=== PATIENT | female | born 1960 | race Caucasian/White ===

== ENCOUNTER 2016-06-10 19:21 | Emergency (ER) | payer OTHER ==
[~2016-06-10] VITALS: Ht 157.5 cm; Wt 120.2 kg
--- NOTE | ~2016-06-10 | EKG ---
[place] [address] [facility] [place] [address] ELECTROCARDIOGRAM REPORT Name: ROC ROMAN Room #: [facility]#: [id number] Admission: 06/10/16 Attend Phys: Discharge: 06/10/16 Date of : 58 Report #: [id number] THIS REPORT FOR: //name// [facility] ED Test Date: 2016-06-10 Test Time: 19:24:10 Pat Name: ROC ROMAN Department: Room: Gender: F Turbo Electric Operator: Mayur SIM RN : 1960 Requested By: Fannie Griffin Order Number: [id number] MD: Jeffery Auguste Measurements Intervals [place] Rate: 86 P: 50 VT: 144 QRS: 6 QRSD: 98 T: 170 QT: 364 QTc: 436 Interpretive Statements Sinus rhythm Ventricular premature complex LVH with secondary repolarization abnormality Anterior ST elevation, probably due to LVH Baseline wander in lead(s) V6 No previous ECG available for comparison Electronically Signed On 06-11-2016 8:21:17 STEAM FITTER by Jeffery Auguste [email or web address] <ELECTRONICALLY SIGNED> By: Jeffery Auguste MD 06/11/16820 23 23 Jeffery Auguste MD /EPI
[~2016-06-10 19:21] MED LIST: ACYCLOVIR 800800 MG PO; IBUPROFEN 600600 M1 PO; PREDNISONE50 MG PO; TRAMADOL 50 MG50 MG PO
[2016-06-10] MEDS ORDERED: AMLODIPINE BESY10 MG PO (21:16)
[2016-06-10 21:55] LABS: ABSOLUTE NEUTROPHILS 8.7 thou/uL (1.4-8.2); BASOPHILS 0.9 % (0.0-2.0); EOSINOPHILS 0.4 % (0.0-3.0); HEMATOCRIT 43.5 % (37.0-47.0); LYMPHOCYTES 16.6 % (24.0-44.0); MCH 31.4 pg (26.0-34.0); MCHC 34.6 % (28.0-37.0); MONOCYTES 6.2 % (1.0-8.0); PLATELET COUNT 308 thou/uL (150-400); POLYS 75.9 % (36.0-66.0); RBC 4.78 mil/uL (4.20-5.00); WBC 11.4 thou/uL (4.0-11.0)
[2016-06-10 21:56] LABS: MANUAL DIFF NO
[2016-06-10 22:00] VITALS: BP 185/76
[2016-06-10 22:08] LABS: ANION GAP 10 mmol/L (7-16); BUN 16 mg/dL (7-18); CALCIUM 9.4 mg/dL (8.5-10.1); CHLORIDE 102 mmol/L (98-107); CO2 29 mmol/L (21-32); CREATININE 0.9 mg/dL (0.6-1.3); GLUCOSE 129 mg/dL (70-99); POTASSIUM 3.1 mmol/L (3.5-5.1); SODIUM 141 mmol/L (136-145)
[2016-06-10 22:22] LABS: ALBUMIN 3.6 g/dL (3.4-5.0); ALKALINE PHOSPHATASE 67 U/L (46-116); NT-PRO BRAIN NAT PEPTIDE 81 pg/mL (<300); SGOT 36 U/L (15-37); SGPT 54 U/L (30-65); TOTAL BILIRUBIN 0.4 mg/dL (<0.1-1.0); TOTAL PROTEIN 7.4 g/dL (6.4-8.2); TROPONIN-I < 0.04 ng/mL (<0.04-0.07)
[2016-06-10] MEDS ORDERED: TESSALON PERLE100 MG PO (23:06)
== END 2016-06-10 22:00 | disposition home or self-care (01) ==
LOC: ER 19:21
PROVIDERS: Emergency Medicine
DX: J06.9 Acute upper respiratory infection, unspecified (principal); I10 Essential (primary) hypertension; E66.9 Obesity, unspecified; Z90.710 Acquired absence of both cervix and uterus; F17.210 Nicotine dependence, cigarettes, uncomplicated

== ENCOUNTER 2017-05-13 17:36 | Inpatient (IN) | payer OTHER ==
[~2017-05-13] VITALS: Ht 157.5 cm; Wt 128.4 kg
--- NOTE | ~2017-05-13 | EEG ---
[facility] [place] [address] ELECTROENCEPHALOGRAM Name: ROC ROMAN Room #: 357-P [facility] IN M.R.#: [id number] Admission: 05/13/17 Attend Phys: Tono Thompson MD Discharge: Date of : 58 Report #: [id number] THIS REPORT FOR: //name// CC: [facility]ono [facility] DATE OF SERVICE: 05/14/2017 This patient is being evaluated for an episode she had with some twitching was noticed. EEG was done by placing the electrodes by standard 10/20 system of electrode placement. Both referential and sequential montages were used for recording. Background activity in this patient's EEG is about 11 Hz and 40 microvolt. It is a symmetrical activity. The patient went to sleep that is associated with bilaterally symmetrical sleep spindle and vertex sharp waves. Photic stimulation is unremarkable. Throughout the record, no active epileptiform activity was noticed. IMPRESSION: This patient's EEG is within normal limit. Thank you very much for this referral. By: 1725 1759 Neal Villalobos MD /nt
--- NOTE | ~2017-05-13 | 2DMMODE ---
[facility] [address] [email or web address] [address] 2 D/M-MODE ECHOCARDIOGRAM Name: ROC ROMAN Room #: 357-P [facility] IN [facility]#: [id number] Admission: 05/13/17 Attend Phys: Tono Thompson MD Discharge: Date of : 58 Date of Service: 05/14/17 1103 Report #: [id number] THIS REPORT FOR: //name// APPROVED REPORT Study performed: 05/14/2017 09:03:10 EXAM: Comprehensive 2D, Doppler, and color-flow Echocardiogram Patient Location: Bedside Room #: 357 Status: routine BSA: 2.22 HR: 79 bpm BP: 158/69 mmHg Other Information Study Quality: Adequate Indications CVA/TIA Hypertension/HDD Echo Enhancing Agent Indication: Rule out Shunt Agent(s) / Amount(s) Used: Agitated Saline 7 cc 2D Dimensions RVDd: 38.76 mm LVEF(%): 64.90 (>50%) IVSd: 15.15 (7-11mm) LVOT Diam: 16.82 (18-24mm) LVDd: 48.03 mm PWd: 14.94 (7-11mm) Ascending Ao: 29.40 (22-36mm) LVDs: 30.96 (25-40mm) Aortic Root: 27.81 mm IVC: 21.00 mm Betts's LVEF: 64.90 % Volumes Left Atrial Volume (Systole) Single Plane 4CH: 72.41 mL Single Plane 2CH: 79.60 mL LA ESV Index: 37.00 mL/m2 Aortic Valve AoV Peak David.: 2.27 m/s AO Peak Gr.: 0.69 mmHg LVOT Max P.41 mmHg AO Mean Gr.: 12.94 mmHg LVOT Mean P.39 mmHg AO V2 Mean: 1.69 m/s LVOT Max V: 1.78 m/s [facility] [place] [address] 2 D/M-MODE ECHOCARDIOGRAM Name: ROC ROMAN Room #: 357-P [facility] IN .R.#: [id number] Admission: 05/13/17 Attend Phys: Tono Thompson MD Discharge: Date of : 58 Date of Service: 05/14/17 1103 Report #: [id number] AO V2 VTI: 48.46 cm LVOT Mean V: 1.24 m/s MELINA (VTI): 1.55 cm2 LVOT V1 VTI: 33.76 cm MELINA Vmax: 1.74 cm2 SV (LVOT): 74.93 mL Mitral Valve E/A Ratio: 0.8 MV Decel. Time: 383.87 ms MV E Max David.: 1.32 m/s MV A David.: 1.58 m/s MV PHT: 111.32 ms IVRT: 129.18 ms Pulmonary Valve PV Peak David.: 1.38 m/s PV Peak Gr.: 7.57 mmHg Pulmonary Vein P Vein S: 0.53 m/s P Vein A: 0.28 m/s P Vein D: 0.36 m/s P Vein A Dur.: 120.0 msec P Vein S/D Ratio: 1.47 Tricuspid Valve TR Peak David.: 2.86 m/s TR Peak Gr.: 32.68 mmHg PA Pressure: 43.00 mmHg Left Ventricle The left ventricle is normal size. There is normal LV segmental wall motion. Mild to moderate concentric left ventricular hypertrophy. Left ventricular systolic function is hyperdynamic. LVEF is 65-70%. Grade I - abnormal relaxation pattern. Right Ventricle The right ventricle is normal size. The right ventricular systolic function is normal. Atria Left atrium is dilated. Interatrial septum is intact without evidence of ASD or PFO. The right atrium size is normal. Aortic Valve The aortic valve is normal in structure. No aortic regurgitation is present. There is no aortic valvular stenosis. Mitral Valve The mitral valve is normal in structure. Trace mitral regurgitation. [facility] [address] [place] [address] 2 D/M-MODE ECHOCARDIOGRAM Name: ROC ROMAN Room #: 357-P [facility] IN M.R.#: [id number] Admission: 05/13/17 Attend Phys: Tono Thompson MD Discharge: Date of : 58 Date of Service: 05/14/17 1103 Report #: [id number] No evidence of mitral valve stenosis. Tricuspid Valve The tricuspid valve is normal in structure. There is no tricuspid valve stenosis. There is trace tricuspid regurgitation. The right atrial pressure is estimated at mmHg. There is moderate pulmonary hypertension. Pulmonic Valve The pulmonary valve is normal in structure. There is no pulmonic valvular regurgitation. Great Vessels The aortic root is normal in size. IVC is dilated and collapses >50% with inspiration. Pericardium There is no pericardial effusion. <Conclusion> The left ventricle is normal size. LVEF is 65-70%. Left atrium is dilated. The right atrium size is normal. The aortic valve is normal in structure. The mitral valve is normal in structure. Trace mitral regurgitation. The tricuspid valve is normal in structure. There is trace tricuspid regurgitation. The right atrial pressure is estimated at mmHg. There is moderate pulmonary hypertension. The pulmonary valve is normal in structure. There is no pericardial effusion. Interatrial septum is intact without evidence of ASD or PFO. <ELECTRONICALLY SIGNED> By: Marcio Jimenez MD 05/14/17 1103 110 02 Marcio Jimenez MD /INF
--- NOTE | ~2017-05-13 | EKG ---
[address] [address] ELECTROCARDIOGRAM REPORT Name: ROC ROMAN Room #: 170-6 ADM IN M.R.#: [id number] Admission: 05/13/17 Attend Phys: Rodrick Da Silva Discharge: Date of : 58 Report #: [id number] THIS REPORT FOR: //name// [facility] ED Test Date: 2017-05-13 Test Time: 17:54:11 Pat Name: ROC ROMAN Department: Room: 170 Gender: F Interactive Multimedia Designer: KKKRISTINA : 1960 Requested By: Dylan Watson Order Number: [id number] MD: Jeffery Auguste Measurements Intervals [place] Rate: 85 P: 48 AL: 140 QRS: 14 QRSD: 98 T: 148 QT: 393 QTc: 468 Interpretive Statements Sinus rhythm LVH with secondary repolarization abnormality Anterior ST elevation, probably due to LVH Compared to ECG 06/10/2016 19:24:10 Ventricular premature complex(es) no longer present ST (T wave) deviation still present Electronically Signed On 05-13-2017 21:13:04 VP & GENERAL COUNSEL by Jeffery Auguste [email or web address] <ELECTRONICALLY SIGNED> By: Jeffery Auguste MD 05/13/17 2113 53 175 Jeffery Auguste MD /EPI
--- NOTE | ~2017-05-13 | HC ---
[facility] [place] [address] CONSULTATION Name: ROC ROMAN Room #: 357-P [facility].#: [id number] Admission: 05/13/17 Attend Phys: Tono Thompson MD Discharge: 05/16/17 Date of : 58 Report #: [id number] THIS REPORT FOR: //name// CC: Tono Silva DATE OF SERVICE: 05/14/2017 HISTORY OF PRESENT ILLNESS: The patient is a 56-year-old white female, right-handed, admitted with right upper extremity ataxia and weakness. She also noted that she was jerking to the right while she was up walking. CT of the head showed a small 8-10 mm left thalamic infarct, unclear age. CTA was negative. MRI of the brain is currently pending. Neurology is involved. We are seeing her in rehabilitation medicine consultation. Of note is the fact that she had markedly elevated blood pressure 223/131 in the Emergency Department and apparently had stopped taking her medications a couple of months ago secondary to finances. She does have morbid obesity and Neurology is recommending lifestyle changes, etc. PAST MEDICAL HISTORY: Includes the hypertension and morbid obesity. She has had a past history of tobacco, but not current. There is a history of psoriasis and a prior hysterectomy. PAST SURGICAL HISTORY: Otherwise, as noted above. ALLERGIES: No known drug allergies. SOCIAL HISTORY: Lives in a house with her , one step. 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 She was independent, ambulatory, did not utilize any adaptive aids. REVIEW OF SYSTEMS: Did not offer any current complaints of chest pain, shortness of breath or abdominal discomfort. PHYSICAL EXAMINATION: GENERAL: A 56-year-old right-handed, obese white female in no obvious distress. The patient is alert, oriented. VITAL SIGNS: Last recorded temperature 97.8, pulse 80, respirations 17, blood pressure 182/71. HEENT: Appeared to be benign. NEUROLOGIC: Cranial nerves are grossly intact. Facies are symmetric. She has functional range of motion of both upper extremities. She does well with fine finger dexterity and [id number]. I could not detect any obvious coordination difficulties of the right upper extremity with basic testing. Her lower extremities, there is no focal calf swelling, functional range of motion. Appeared to have good strength at least a grade 4+/5. She has done well with [address] [address] CONSULTATION Name: ROC ROMAN Room #: 357-P [facility] IN .R.#: [id number] Admission: 05/13/17 Attend Phys: Tono Thompson MD Discharge: 05/16/17 Date of : 58 Report #: [id number] sit to stand, standby assistance. Gait 250 feet standby assistance without an assistive device. She also has done well in occupational therapy, standby assistance for lower body dressing and upper body dressing. ASSESSMENT: A 56-year-old right-handed obese white female with the following problem list: 1. An 8-10 mm left thalamic infarct of unclear age per CT scan. MRI is currently pending. CTA was negative. 2. Right upper extremity weakness/apparent ataxia which has improved. 3. Significant hypertension. 4. Morbid obesity. PLAN: She is doing well at this time from a functional perspective and is too high level to warrant an acute in-hospital inpatient rehabilitation stay. Her workup continues and we will have the therapist continue to work with her while she is here in the hospital. Physical therapy is going to work with her on stairs and occupational therapy is continuing to work with her as well. Thank you for asking us to assist in this patient's care. <ELECTRONICALLY SIGNED> By: Jorge Nelson MD 05/19/17 1219 1215 1557 Jorge Nelson MD /[facility]
--- NOTE | ~2017-05-13 | HC ---
[facility] [place] [address] CONSULTATION Name: ROC ROMAN Room #: 357-P [facility] IN ..#: [id number] Admission: 05/13/17 Attend Phys: Tono Thompson MD Discharge: Date of : 58 Report #: [id number] THIS REPORT FOR: //name// CC: Tono Silva DATE OF SERVICE: 05/14/2017 HISTORY OF PRESENT ILLNESS: This is a 56-year-old female patient who was evaluated by me for an episode of right-sided incoordination with some speech impairment, which happened the day before. When it did not become better, she came to emergency room. This episode has come spontaneously. There was no trauma involved with this. It was not getting any better or worse and she did not know any aggravating or relieving factor. Symptoms were moderately severe. REVIEW OF SYSTEMS: Indicate this patient is a known hypertensive. She was on antihypertensive medications, but stopped taking it about 2 months ago because of financial reasons. Her blood pressure was very high when she came in. She is morbidly obese and she thinks she snores some time. She has never been diagnosed with sleep apnea. There may have been slight jerking on the right side also. She has knee pains in the past. I carried out her 14-point review of system and this was her relevant 14-point review of systems. PAST MEDICAL HISTORY: Negative for stroke in this patient. FAMILY HISTORY: Negative for early age stroke. 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 She indicates she does not smoke or drink alcohol on a regular basis. PHYSICAL EXAMINATION: Her examinations indicate she is alert. She is responsive. She can follow simple commands. Her speech, concentration, fund of knowledge and memory is at his baseline. Cranial nerve examination 2-12 is unremarkable. She has a symmetrical strength, sensation, reflexes and tone in all 4 extremities. She does have some difficulty with rapid finger tapping and alternate finger tapping. I could not have a very good look at the patient's fundus. She is a well-developed, morbidly obese individual whose hearing and vision looks adequate. She does not have any thyroid abnormality. There is no carotid bruit. Cardiac examination demonstrates unremarkable heart sounds and there does not appear to be any atrial fibrillation. No respiratory difficulty or rhonchi present. Her blood pressure is 158/69, respirations 17, pulse is 80, and temperature is 98.1. LABORATORY DATA: White count is 10.4 and her sodium is 139. She did have a CT scan as well as CT angiogram in the emergency room and that appear unremarkable. [address] [address] CONSULTATION Name: ROC ROMAN Room #: 357-P [facility] IN ..#: [id number] Admission: 05/13/17 Attend Phys: Tono Thompson MD Discharge: Date of : 58 Report #: [id number] IMPRESSION: This patient came with hypertensive urgency because of noncompliance with antihypertensive. Either she has a small lacunar cerebrovascular accident causing weakness on the right side or the symptoms were because of hypertensive urgency. Since the symptoms persist, it is possible that she has a lacunar cerebrovascular accident and she is scheduled to have an MRI done in that regard. She needs significant treatment as an outpatient. She needs good control of her hypertension. She is on aspirin and if her LDL is high, she should be on statin. She needs to lose weight and eat healthy and as an outpatient, she should be checked for sleep study to evaluate the patient for sleep apnea because sleep apnea is an independent risk factor for stroke. RECOMMENDATIONS: 1. Await MRI. 2. Continue aspirin. 3. If LDL is high, she should be on statin. 4. Sleep study as an outpatient for sleep apnea and follow up with a sleep specialist if apnea is found. 5. Healthy habits and losing the weight. 6. We will do a few other blood workup as ordered. I discussed all of it with the patient in detail and she understands it and she wants to follow this plan. By: 0844 1041 Neal Villalobos MD /nt
[~2017-05-13 17:36] MED LIST changes: +AMLODIPINE BESY10 MG PO; +TESSALON PERLE100 MG PO
[2017-05-13 17:48] VITALS: BP 223/131
[2017-05-13 18:11] LABS: ABSOLUTE NEUTROPHILS 8.3 thou/uL (1.4-8.2); BASOPHILS 0.8 % (0.0-2.0); EOSINOPHILS 0.6 % (0.0-3.0); HEMOGLOBIN 14.1 gm/dL (12.0-15.0); LYMPHOCYTES 13.5 % (24.0-44.0); MCH 30.8 pg (26.0-34.0); MCHC 33.5 g/dL (28.0-37.0); MCV 91.9 fL (80.0-100.0); MONOCYTES 4.7 % (1.0-8.0); PLATELET COUNT 291 thou/uL (150-400); POLYS 80.4 % (36.0-66.0); RBC 4.57 mil/uL (4.20-5.00); RDW 13.5 % (10.5-14.5); WBC 10.4 thou/uL (4.0-11.0)
[2017-05-13 18:14] LABS: MANUAL DIFF NO
[2017-05-13 18:20] LABS: CALCIUM 9.5 mg/dL (8.5-10.1); CREATININE 0.7 mg/dL (0.6-1.0); POTASSIUM 3.5 mmol/L (3.5-5.1)
[2017-05-13 18:28] LABS: TROPONIN-I 0.05 ng/mL (<0.06)
[2017-05-13 20:36] VITALS: BP 181/76
[2017-05-13 21:10] VITALS: BP 181/76
[2017-05-13 21:25] VITALS: BP 194/93
[2017-05-13] MEDS ORDERED: LISINOPRIL20 MG PO (22:21)
[2017-05-13] MEDS ORDERED: AMLODIPINE BESY10 MG PO (22:22)
[2017-05-13 22:36] VITALS: BP 178/79
[2017-05-13 23:15] VITALS: BP 171/79
[2017-05-14 03:31] LABS: ALBUMIN 3.1 g/dL (3.4-5.0); ALKALINE PHOSPHATASE 59 U/L (46-116); CHOLESTEROL 176 mg/dL (<200); DIRECT BILIRUBIN 0.2 mg/dL (<0.1-0.3); HDL CHOLESTEROL 54 mg/dL (>40); LDL CHOLESTEROL 103 mg/dL (<100); SGOT 20 U/L (15-37); SGPT 27 U/L (30-65); TC:HDL 3.3 Ratio (Not establshd); TOTAL BILIRUBIN 0.5 mg/dL (<0.1-1.0); TOTAL PROTEIN 6.3 g/dL (6.4-8.2); TRIGLYCERIDE 97 mg/dL (<150); VLDL 19 mg/dL (<40)
[2017-05-14 03:32] LABS: SERUM ASSESSMENT Clear
[2017-05-14 04:10] VITALS: BP 169/82
[2017-05-14 06:50] VITALS: BP 158/69
[2017-05-14 09:30] LABS: TSH 0.879 uIU/mL (0.358-3.740)
[2017-05-14 11:26] VITALS: BP 182/71
[2017-05-14 17:26] VITALS: BP 189/85
[2017-05-14 19:01] VITALS: BP 197/79
[2017-05-14 23:55] VITALS: BP 208/86
[2017-05-15] VITALS (7 sets, daily range): BP systolic 156–1185; BP diastolic 66–94
[2017-05-15 06:07] LABS: GLYCOHEMOGLOBIN (HGB A1C) 5.9 % (4.8-5.6)
[2017-05-16 03:26] VITALS: BP 156/58
[2017-05-16 07:07] VITALS: BP 164/72
[2017-05-16] MEDS ORDERED: LISINOPRIL20 MG PO (09:09)
[2017-05-16] MEDS ORDERED: LIPITOR10 MG PO (09:09)
[2017-05-16 10:07] VITALS: BP 164/72
== END 2017-05-16 11:21 | disposition home or self-care (01) | DRG 65 ==
LOC: ER 17:36 → 3W 19:50 → EROBS 19:50 → 3W 21:14 → ENTRNSPT 05-16 11:01 → EDTRNSPTSTS 05-16 11:04 → CMPTRNSPT 05-16 11:15 → 3W 05-16 11:21
PROVIDERS: Nurse Practitioner; Nurse Practitioner Acute Care; Psychiatry & Neurology Neuromuscular Medicine
DX: I63.9 Cerebral infarction, unspecified (principal); Z68.43 Body mass index [BMI] 50.0-59.9, adult; I10 Essential (primary) hypertension; I16.0 Hypertensive urgency; E66.01 Morbid (severe) obesity due to excess calories; L40.9 Psoriasis, unspecified; E78.5 Hyperlipidemia, unspecified; Z91.14 Patient's other noncompliance with medication regimen; Z90.710 Acquired absence of both cervix and uterus; Z87.891 Personal history of nicotine dependence
CPT/HCPCS: 10879

== ENCOUNTER 2017-11-17 15:30 | Emergency (ER) | payer OTHER ==
[~2017-11-17] VITALS: Ht 157.5 cm; Wt 124.7 kg
--- NOTE | ~2017-11-17 | EKG ---
[address] [address] ELECTROCARDIOGRAM REPORT Name: ROC ROMAN Room #: [facility]#: [id number] Admission: 11/17/17 Attend Phys: Discharge: 11/17/17 Date of : 58 Report #: [id number] THIS REPORT FOR: //name// [facility] ED Test Date: 2017-11-17 Test Time: 15:57:46 Pat Name: ROC ROMAN Department: Room: Gender: F Community Health Worker: Mayur DEL VALLE : 1960 Requested By: Micheal Saleem Order Number: [id number] MD: Jeffery Auguste Measurements Intervals [place] Rate: 74 P: 60 NV: 154 QRS: 13 QRSD: 100 T: 136 QT: 407 QTc: 452 Interpretive Statements Sinus rhythm Compared to ECG 05/13/2017 17:54:11 Left ventricular hypertrophy no longer present Early repolarization no longer present ST (T wave) deviation no longer present Electronically Signed On 11-18-2017 14:28:09 CDT by Jeffery Auguste [email or web address] <ELECTRONICALLY SIGNED> By: Jeffery Auguste MD 11/18/17 1428 1557 1557 Jeffery Auguste MD /EPI
[~2017-11-17 15:30] MED LIST changes: +LIPITOR10 MG PO; +LISINOPRIL20 MG PO
[2017-11-17 16:30] LABS: HEMOGLOBIN 14.2 gm/dL (12.0-15.0); MCH 30.6 pg (26.0-34.0); MCHC 33.8 g/dL (28.0-37.0); MCV 90.5 fL (80.0-100.0); RBC 4.64 mil/uL (4.20-5.00); WBC 6.4 thou/uL (4.0-11.0)
[2017-11-17 16:39] LABS: ANION GAP 7 mmol/L (7-16); BUN 11 mg/dL (7-18); CHLORIDE 103 mmol/L (98-107); CO2 26 mmol/L (21-32); CREATININE 0.7 mg/dL (0.6-1.0); GLUCOSE 137 mg/dL (74-106); POTASSIUM 3.3 mmol/L (3.5-5.1); SODIUM 136 mmol/L (136-145)
[2017-11-17 16:42] LABS: APTT 24.3 Seconds (24.5-32.8); PROTIME 10.5 Seconds (9.3-11.4)
[2017-11-17 16:46] LABS: TROPONIN-I < 0.04 ng/mL (<0.06)
[2017-11-17] MEDS ORDERED: MUCINEX DM ER1 EACH PO (18:06)
== END 2017-11-17 18:24 | disposition home or self-care (01) ==
LOC: ER 15:30
PROVIDERS: Emergency Medicine
DX: B34.9 Viral infection, unspecified (principal); I10 Essential (primary) hypertension; Z90.710 Acquired absence of both cervix and uterus; Z87.891 Personal history of nicotine dependence

== ENCOUNTER 2019-06-26 22:39 | Inpatient (IN) | payer BC ==
[~2019-06-26] VITALS: Ht 157.5 cm; Wt 121.0 kg
[~2019-06-26 22:39] MED LIST changes: +MUCINEX DM ER1 EACH PO
[2019-06-26 22:45] VITALS: BP 270/113
[2019-06-26 23:26] LABS: ABSOLUTE NEUTROPHILS 4.2 thou/uL (1.4-8.2); BASOPHILS 0.8 % (0.0-2.0); EOSINOPHILS 0.1 % (0.0-3.0); HEMATOCRIT 46.9 % (37.0-47.0); HEMOGLOBIN 15.5 gm/dL (12.0-15.0); LYMPHOCYTES 12.1 % (24.0-44.0); MCH 30.1 pg (26.0-34.0); MCV 91.2 fL (80.0-100.0); MONOCYTES 8.1 % (1.0-8.0); PLATELET COUNT 230 thou/uL (150-400); POLYS 78.9 % (36.0-66.0); RBC 5.14 mil/uL (4.20-5.00); RDW 12.9 % (10.5-14.5); WBC 5.3 thou/uL (4.0-11.0)
[2019-06-26 23:33] LABS: CALCIUM 8.9 mg/dL (8.5-10.1); POTASSIUM 3.1 mmol/L (3.5-5.1)
[2019-06-26 23:42] LABS: TROPONIN-I 0.1 ng/mL (<0.06)
[2019-06-27] VITALS (7 sets, daily range): BP systolic 142–185; BP diastolic 58–77
[2019-06-27 08:19] LABS: ANION GAP 12 mmol/L (7-16); BUN 16 mg/dL (7-18); CALCIUM 8.7 mg/dL (8.5-10.1); CHLORIDE 101 mmol/L (98-107); CHOLESTEROL 157 mg/dL (<200); CO2 26 mmol/L (21-32); CREATININE 0.8 mg/dL (0.6-1.0); GLUCOSE 113 mg/dL (74-106); HDL CHOLESTEROL 36 mg/dL (>40); LDL CHOLESTEROL 100 mg/dL (<100); POTASSIUM 3.3 mmol/L (3.5-5.1); SODIUM 139 mmol/L (136-145); TC:HDL 4.4 Ratio (Not establshd); TRIGLYCERIDE 107 mg/dL (<150); TROPONIN-I 0.11 ng/mL (<0.06); VLDL 21 mg/dL (<40)
--- NOTE | 2019-06-27 10:28 | EKG ---
[place] [address] [facility] [email or web address] [address] ELECTROCARDIOGRAM REPORT Name: ROMANROC Mayur Room #: 212-P ADM IN M.R.#: [id number] Admission: 06/27/19 Attend Phys: Ida Bautista MD Discharge: Date of : 58 Report #: [id number] THIS REPORT FOR: //name// [facility] ED Test Date: 2019-06-26 Test Time: 23:07:00 Pat Name: ROC ROMAN Department: Room: [facility] Gender: F Manager Air: MPAALCIDES : 1960 Requested By: Sheila Lane Order Number: [id number] MD: Behzad North Measurements Intervals [place] Rate: 63 P: 50 TN: 144 QRS: 25 QRSD: 113 T: 141 QT: 437 QTc: 448 Interpretive Statements Sinus rhythm LVH with IVCD and secondary repol abnrm Nonspecific ST segment abnormalities Compared to ECG 11/17/2017 15:57:46 no significant change Electronically Signed On 06-27-2019 10:28:17 FIELD EXAMINER by Behzad North [email or web address] <ELECTRONICALLY SIGNED> By: Behzad North MD 06/27/19 1028 06 06 Behzad North MD /JESUS
[2019-06-28 00:45] VITALS: BP 179/59
[2019-06-28 03:06] LABS: GLYCOHEMOGLOBIN (HGB A1C) 6.2 % (4.8-5.6)
[2019-06-28 04:55] VITALS: BP 186/73
--- NOTE | 2019-06-28 08:43 | HC ---
[facility] [place] [address] CONSULTATION Name: ROC ROMAN Room #: 212-P [facility] IN .R.#: [id number] Admission: 06/27/19 Attend Phys: Ida Bautista MD Discharge: Date of : 58 Report #: [id number] THIS REPORT FOR: //name// CC: Ida Bautista [facility] physician/PCP DATE OF SERVICE: 06/27/2019 INDICATION: Dyspnea. HISTORY OF PRESENT ILLNESS: This is a 59-year-old female with a past medical history of hypertension, hypercholesterolemia, noncompliance with medications, CVA, obesity and edema. She reports having worsening of her respiratory status over the past few days. Noted a cough, difficult to produce phlegm. She also had some mild chest discomfort. She denies any fever, nausea, diarrhea or chills. In the ER, she was noted to have a systolic blood pressure greater than 250 mmHg. She has not been taking her medications. She was previously admitted in 2017 with a CVA and uncontrolled hypertension due to noncompliance with medications. PAST MEDICAL HISTORY: CVA in 2017, history of hypertension with medical noncompliance. Hypercholesterolemia, edema and obesity. ALLERGIES: None. MEDICATIONS: Include aspirin only. SOCIAL HISTORY: Denies any tobacco use. The patient reports that she had a lapse in insurance as the reason why she was not on any medications. FAMILY HISTORY: Negative for premature CAD. REVIEW OF SYSTEMS: A full 10-point review of systems performed. Only the pertinent positives and negatives are described in the HPI. PHYSICAL EXAMINATION: VITAL SIGNS: Blood pressure now is 159/60, heart rate is 60 beats per minute. GENERAL APPEARANCE: An overweight female, in no acute distress. HEENT: Normocephalic, atraumatic. Oral mucosa moist. NECK: Supple. LUNGS: Clear to auscultation. CARDIAC: Regular rate and rhythm, S1, S2 positive. ABDOMEN: Soft, protuberant, nontender. EXTREMITIES: Trace edema, no cyanosis. ECG reveals sinus rhythm with LVH with intraventricular conduction delay and [facility] [address] [place] [address] CONSULTATION Name: ROC ROMAN Room #: [facility] IN .R.#: [id number] Admission: 06/27/19 Attend Phys: Ida Bautista MD Discharge: Date of : 58 Report #: [id number] repolarization abnormality. LABORATORY VALUES: Creatinine is 0.8. Troponin is 0.11, hemoglobin 15.5. ASSESSMENT AND PLAN: 1. Respiratory failure, may have been due to hypertensive urgency. Her breathing seems to have improved with better control of her blood pressure. May have a component of an upper respiratory infection. 2. Minimal troponin elevation, may be related to oxygen supply/demand mismatch from elevated blood pressure; however, she has significant risk factors and we will proceed with an ischemic evaluation. 3. Hypertension, we will need to resume her previous medications including MARQUES inhibitor and amlodipine. 4. Noncompliance. I have discussed with her the importance of compliance with medications in view of her risk factors. 5. Cerebrovascular accident, stable at this time. Continue with aspirin therapy. 6. Hypercholesterolemia, start a statin medication. <ELECTRONICALLY SIGNED> By: Behzad North MD 06/28/19 0843 1053 1124 Behzad North MD /nt
[2019-06-28 09:10] VITALS: BP 157/58
[2019-06-28 10:51] LABS: HEMATOCRIT 43.2 % (37.0-47.0); HEMOGLOBIN 14.4 gm/dL (12.0-15.0); MCH 30.3 pg (26.0-34.0); MCHC 33.2 g/dL (28.0-37.0); MCV 91.1 fL (80.0-100.0); RBC 4.75 mil/uL (4.20-5.00); RDW 13.5 % (10.5-14.5); WBC 4.8 thou/uL (4.0-11.0)
[2019-06-28 10:57] LABS: CREATININE 0.9 mg/dL (0.6-1.0); POTASSIUM 3.4 mmol/L (3.5-5.1)
[2019-06-28 11:54] VITALS: BP 146/60
[2019-06-28 19:55] VITALS: BP 173/60
[2019-06-28 22:56] VITALS: BP 176/68
[2019-06-29 03:50] LABS: HEMATOCRIT 43.5 % (37.0-47.0); HEMOGLOBIN 14.3 gm/dL (12.0-15.0); MCH 30.1 pg (26.0-34.0); MCHC 32.8 g/dL (28.0-37.0); MCV 91.7 fL (80.0-100.0); RBC 4.74 mil/uL (4.20-5.00); RDW 13.7 % (10.5-14.5); WBC 4.9 thou/uL (4.0-11.0)
[2019-06-29 04:09] LABS: CALCIUM 8.9 mg/dL (8.5-10.1); CREATININE 0.8 mg/dL (0.6-1.0); MAGNESIUM 2.1 mg/dL (1.8-2.4); POTASSIUM 3.1 mmol/L (3.5-5.1)
[2019-06-29 04:25] VITALS: BP 172/60
[2019-06-29 07:30] VITALS: BP 164/64
[2019-06-29 12:30] VITALS: BP 157/69
--- NOTE | 2019-06-29 14:33 | 2DMMODE ---
[facility] [email or web address] [email or web address] [address] 2 D/M-MODE ECHOCARDIOGRAM Name: ROC ROMAN Room #: 212-P ADM IN .R.#: [id number] Admission: 06/27/19 Attend Phys: Fiordaliza Gonzalez Discharge: Date of : 58 Report #: [id number] THIS REPORT FOR: //name// APPROVED REPORT Study performed: 06/29/2019 13:31:00 EXAM: Comprehensive 2D, Doppler, and color-flow Echocardiogram Patient Location: Echo lab Room #: [facility] Status: routine BSA: 2.16 HR: 71 bpm BP: 157/69 mmHg Rhythm: NSR Other Information Study Quality: Adequate Indications Hypertension/HDD 2D Dimensions RVDd: 36.58 mm IVSd: 16.58 (7-11mm) LVOT Diam: 20.85 (18-24mm) LVDd: 44.79 mm PWd: 15.55 (7-11mm) Ascending Ao: 29.49 (22-36mm) LVDs: 29.43 (25-40mm) Aortic Root: 29.75 mm IVC: 12.00 mm Volumes Left Atrial Volume (Systole) Single Plane 4CH: 85.26 mL Single Plane 2CH: 54.67 mL LA ESV Index: 35.00 mL/m2 Aortic Valve AoV Peak David.: 1.61 m/s AO Peak Gr.: 10.42 mmHg LVOT Max P.45 mmHg LVOT Max V: 1.69 m/s MELINA Vmax: 3.58 cm2 Mitral Valve E/A Ratio: 0.9 MV Decel. Time: 404.88 ms MV E Max David.: 1.48 m/s [facility] [address] [place] [address] 2 D/M-MODE ECHOCARDIOGRAM Name: ROC ROMAN Room #: [address] [place] [address] [place] [facility]#: [id number] Admission: 06/27/19 Attend Phys: Fiordaliza Gonzalez Discharge: Date of : 58 Report #: [id number] A David.: 1.72 m/s MV PHT: 117.42 ms IVRT: 133.79 ms Pulmonary Valve PV Peak David.: 1.71 m/s PV Peak Gr.: 11.69 mmHg Pulmonary Vein P Vein S: 0.62 m/s P Vein A: 0.30 m/s P Vein D: 0.52 m/s P Vein A Dur.: 96.9 msec P Vein S/D Ratio: 1.19 Tricuspid Valve TR Peak David.: 3.14 m/s TR Peak Gr.: 39.33 mmHg PA Pressure: 44.00 mmHg Left Ventricle The left ventricle is normal size. There is normal LV segmental wall motion. Moderate concentric left ventricular hypertrophy. Left ventricular systolic function is hyperdynamic. LV intracavitary gradient is present. LVEF is 70%. Grade I - abnormal relaxation pattern. Right Ventricle The right ventricle is normal size. The right ventricular systolic function is normal. Atria Left atrium is dilated. Right atrium is at the upper limits of normal. Aortic Valve The aortic valve is normal in structure. The Aortic valve is sclerotic. No aortic regurgitation is present. There is no aortic valvular stenosis. Mitral Valve The mitral valve is normal in structure. There is mitral annular calcification. Trace to mild mitral regurgitation. No evidence of mitral valve stenosis. Tricuspid Valve The tricuspid valve is normal in structure. There is trace tricuspid regurgitation. Estimated PAP 44 mmHg. There is moderate pulmonary hypertension. [facility] [address] [place] [address] 2 D/M-MODE ECHOCARDIOGRAM Name: ROC ROMAN Room #: [address] [place] [address] [place] [facility].#: [id number] Admission: 06/27/19 Attend Phys: Fiordaliza Gonzalez Discharge: Date of : 58 Report #: [id number] Pulmonic Valve The pulmonary valve is normal in structure. Trace pulmonic regurgitation. Great Vessels The aortic root is normal in size. IVC is normal in size and collapses >50% with inspiration. Pericardium There is no pericardial effusion. <Conclusion> The left ventricle is normal size. Moderate concentric left ventricular hypertrophy. Left ventricular systolic function is hyperdynamic. LV intracavitary gradient is present. Grade I - abnormal relaxation pattern. The right ventricle is normal size. Left atrium is dilated. The Aortic valve is sclerotic. There is mitral annular calcification. Trace to mild mitral regurgitation. There is trace tricuspid regurgitation. Estimated PAP 44 mmHg. <ELECTRONICALLY SIGNED> By: Behzad North MD 06/29/19 1432 [id number] Behzad North MD /INF
[2019-06-29 15:30] VITALS: BP 155/65
[2019-06-29 20:39] VITALS: BP 130/64
[2019-06-30 01:25] VITALS: BP 156/85
[2019-06-30 05:24] VITALS: BP 145/73
[2019-06-30 05:43] LABS: CALCIUM 8.6 mg/dL (8.5-10.1); CREATININE 0.9 mg/dL (0.6-1.0); POTASSIUM 3.5 mmol/L (3.5-5.1)
[2019-06-30 07:00] VITALS: BP 150/59
[2019-06-30] MEDS ORDERED: CARVEDILOL12.5 MG PO (09:05)
[2019-06-30] MEDS ORDERED: NORVASC5 MG PO (09:05)
[2019-06-30] MEDS ORDERED: K-DUR 20 MEQ T20 MEQ PO (09:05)
[2019-06-30] MEDS ORDERED: CHLORTHALIDONE25 MG PO (09:05)
[2019-06-30 10:30] VITALS: BP 123/58
[2019-06-30] MEDS ORDERED: ASA81BEC PO (13:11)
[2019-06-30] MEDS ORDERED: IPRAT-ALBUT 0.5-3 ML INH (13:11)
[2019-06-30 14:51] VITALS: BP 123/58
== END 2019-06-30 16:06 | disposition home or self-care (01) | DRG 189 ==
LOC: ER 22:39 → 2N 06-27 01:07 → EROBS 06-27 01:07 → 2N 06-27 02:11
PROVIDERS: Emergency Medicine Emergency Medical Services; Internal Medicine; Nurse Practitioner; Nurse Practitioner Acute Care; ADMIT Hospitalist
DX: J96.00 Acute respiratory failure, unspecified whether with hypoxia or hypercapnia (principal); Z68.42 Body mass index [BMI] 45.0-49.9, adult; I10 Essential (primary) hypertension; E78.00 Pure hypercholesterolemia, unspecified; Z77.22 Contact with and (suspected) exposure to environmental tobacco smoke (acute) (chronic); I16.0 Hypertensive urgency; E87.6 Hypokalemia; E66.01 Morbid (severe) obesity due to excess calories; L40.9 Psoriasis, unspecified; E78.5 Hyperlipidemia, unspecified; I27.20 Pulmonary hypertension, unspecified; Z90.710 Acquired absence of both cervix and uterus; Z91.14 Patient's other noncompliance with medication regimen; Z87.891 Personal history of nicotine dependence; Z86.73 Personal history of transient ischemic attack (TIA), and cerebral infarction without residual deficits; Z82.49 Family history of ischemic heart disease and other diseases of the circulatory system; Z82.3 Family history of stroke; Z79.82 Long term (current) use of aspirin; Z79.899 Other long term (current) drug therapy
CPT/HCPCS: 10081

== ENCOUNTER 2021-07-23 00:22 | Inpatient (IN) | payer BC ==
[~2021-07-23] VITALS: Ht 152.4 cm; Wt 155.8 kg
[~2021-07-23 00:22] MED LIST changes: +ASA81BEC PO; +CARVEDILOL12.5 MG PO; +CHLORTHALIDONE25 MG PO; +IPRAT-ALBUT 0.5-3 ML INH; +K-DUR 20 MEQ T20 MEQ PO; +NORVASC5 MG PO
[2021-07-23 01:20] VITALS: BP 132/70
--- NOTE | 2021-07-23 01:25 | NUR ---
ON ARRIVAL TO ER PATIENT IS NOTED TO HAVE SMALL LIVING INSECTS CRAWLING ON HER CLOTHING AND BEDDING FROM EMS PATIENT IS VERY PLEASANT AND STATES SHE IS EMBARASSED ABOUT HER STATE OF HYGIENE BUT JUST FEELS LIKE SHE DOESNT CARE ENOUGH TO DO IT ALL OF PATIENTS CLOTHING ARE REMOVED AND SHE IS ASSISTED INTO HOSPITAL GOWN PATIENT IS ALERT AND ORIENTATED X 4
[2021-07-23 01:37] LABS: ABSOLUTE NEUTROPHILS 8.8 thou/uL (1.4-8.2); BASOPHILS 0.8 % (0.0-2.0); EOSINOPHILS 0.7 % (0.0-3.0); HEMOGLOBIN 7.5 gm/dL (12.0-15.0); LYMPHOCYTES 9.7 % (24.0-44.0); MCH 26.7 pg (26.0-34.0); MCHC 31.1 g/dL (28.0-37.0); MCV 85.8 fL (80.0-100.0); MONOCYTES 6.5 % (1.0-8.0); PLATELET COUNT 267 thou/uL (150-400); POLYS 82.3 % (36.0-66.0); RBC 2.79 mil/uL (4.20-5.00); RDW 16.2 % (10.5-14.5); WBC 10.7 thou/uL (4.0-11.0)
[2021-07-23 01:43] LABS: CALCIUM 8.3 mg/dL (8.5-10.1); CREATININE 0.9 mg/dL (0.6-1.0); POTASSIUM 3.6 mmol/L (3.5-5.1)
--- NOTE | 2021-07-23 01:45 | NUR ---
ASSISTED TO BEDSIDE COMMODE AND NOTED TO HAVE DRIED STOOL ON HER BUTTOCKS ATTEMPT TO REMOVE SAME BEST I CAN BUT PATIENT IS UNSTEADY ON HER FEET AND SOB WITH EXERTION
[2021-07-23 01:49] LABS: APTT 25.1 Seconds (24.5-32.8); INR 1.08; PROTIME 11.7 Seconds (10.5-12.1)
[2021-07-23 01:53] LABS: ALBUMIN 2.6 g/dL (3.4-5.0); TOTAL BILIRUBIN 0.5 mg/dL (0.2-1.0); TOTAL PROTEIN 5.9 g/dL (6.4-8.2)
--- NOTE | 2021-07-23 02:30 | NUR ---
PATIENT TRANSPORTED TO AND FROM CT WITH NURSE PLACED [facility]NTO HOSPITAL BED FOR COMFORT
--- NOTE | 2021-07-23 06:46 | NUR ---
ATTEMPT TO CALL REPORT, FLOOR WILL CALL BACK WHEN NURSE IS AVAILALE
[2021-07-23 07:27] VITALS: BP 102/48
--- NOTE | 2021-07-23 07:42 | EKG ---
[address] [place] [address] ELECTROCARDIOGRAM REPORT Name: ROC ROMAN Room #: 349-I ADM IN ..#: [id number] Admission: 07/23/21 Attend Phys: Otilia Bowen MD Discharge: Date of : 58 Report #: [id number] [facility] ED Test Date: 2021-07-23 Test Time: 01:37:05 Pat Name: ROC ROMAN Department: Room: [facility] Gender: F Virtual Recruiter: : 1960 Requested By: John Paul Richardson Order Number: [id number] MD: Garrett Denney Measurements Intervals [place] Rate: 86 P: OR: QRS: 4 QRSD: 105 T: 66 QT: 371 QTc: 444 Interpretive Statements Atrial fibrillation Low voltage, precordial leads Minimal ST depression, lateral leads Compared to ECG 06/26/2019 23:07:00 Low QRS voltage now present ST (T wave) deviation now present Sinus rhythm no longer present Intraventricular conduction delay no longer present Left ventricular hypertrophy no longer present Early repolarization no longer present Electronically Signed On 07-23-2021 7:41:50 MANAGER SYSTEM by Garrett Denney [email or web address] <ELECTRONICALLY SIGNED> By: Garrett Denney MD, [place] [facility] 07/23/21 0741 6 6 Garrett Denney MD, [facility] /EPI
--- NOTE | 2021-07-23 10:12 | 2DMMODE ---
[facility] [place] [address] 2 D/M-MODE ECHOCARDIOGRAM Name: ROC ROMAN Room #: 349-I ADM IN [facility]#: [id number] Admission: 07/23/21 Attend Phys: Otilia Bowen MD Discharge: Date of : 58 Report #: [id number] THIS REPORT FOR: cc: Marcin Bowman MD, Neal A. MD Lammoglia, Francisco J. MD ~ APPROVED REPORT Study performed: 07/23/2021 09:34:41 EXAM: Comprehensive 2D, Doppler, and color-flow Echocardiogram Patient Location: Bedside Room #: 349 Status: routine BSA: 2.37 HR: 93 bpm BP: 102/48 mmHg Rhythm: Atrial Fibrillation Other Information Study Quality: Fair/Poor echo windows Technically limited study due to morbid obesity. Indications LVH, Stroke. Hx: CVA, Afib, HTN, HLP, DM. 2D Dimensions IVSd: 13.19 (7-11mm) LVOT Diam: 19.92 (18-24mm) LVDd: 49.63 mm PWd: 12.48 (7-11mm) Ascending Ao: 32.45 (22-36mm) LVDs: 32.42 (25-40mm) Left Atrium: 43.08 (27-40mm) Aortic Root: 33.66 mm Aortic Valve AoV Peak David.: 2.42 m/s AO Peak Gr.: 23.50 mmHg LVOT Max P.19 mmHg AO Mean Gr.: 13.86 mmHg AO V2 Mean: 1.78 m/s LVOT Max V: 1.02 m/s AO V2 VTI: 45.67 cm MELINA Vmax: 1.32 cm2 Pulmonary Valve [facility] [place] [address] [address] 2 D/M-MODE ECHOCARDIOGRAM Name: ROC ROMAN Room #: 349-I [facility] IN [facility]#: [id number] Admission: 07/23/21 Attend Phys: Otilia Bowen, Discharge: Date of : 58 Report #: [id number] PV Peak David.: 1.22 m/s PV Peak Gr.: 5.99 mmHg Tricuspid Valve TR Peak David.: 3.65 m/s TR Peak Gr.: 53.36 mmHg Left Ventricle The left ventricle is normal size. Regional wall motion is grossly normal. Mild concentric left ventricular hypertrophy. Left ventricular systolic function is normal. LVEF is 60-65%. This study is not technically sufficient to allow evaluation of the LV diastolic function due to atrial fibrillation. Right Ventricle The right ventricle is normal size. The right ventricular systolic function is normal. Atria Left atrium is mildly dilated. The right atrium size is normal. (Negative bubble study on previous echo). Aortic Valve Aortic valve is calcified. No aortic regurgitation is present. There is mild to moderate valvular aortic stenosis. Calculated aortic valve area is 1.3 cm2 with maximum pressure gradient of 24 mmHg and mean pressure gradient of 14 mmHg. Mitral Valve There is mitral annular calcification. Mild mitral regurgitation. No evidence of mitral valve stenosis. Tricuspid Valve The tricuspid valve is normal in structure. Mild to moderate tricuspid regurgitation. Estimated PAP is 55mmHG. Pulmonic Valve Pulmonic valve is not well visualized. Great Vessels The aortic root is normal in size. The ascending aorta is normal in size. IVC is not well visualized. Pericardium There is no pericardial effusion. <Conclusion> [facility] [address] [place] [address] 2 D/M-MODE ECHOCARDIOGRAM Name: ROC ROMAN Room #: 349-I ADM IN [facility].#: [id number] Admission: 07/23/21 Attend Phys: Otilia Bowen, Discharge: Date of : 58 Report #: [id number] The left ventricle is normal size. Mild concentric left ventricular hypertrophy. LVEF is 60-65%. The right ventricle is normal size. Left atrium is mildly dilated. Aortic valve is calcified. No aortic regurgitation is present. There is mild to moderate valvular aortic stenosis. Calculated aortic valve area is 1.3 cm2 with maximum pressure gradient of 24 mmHg and mean pressure gradient of 14 mmHg. There is mitral annular calcification. Mild mitral regurgitation. The tricuspid valve is normal in structure. Mild to moderate tricuspid regurgitation. Estimated PAP is 55mmHG. Pulmonic valve is not well visualized. The aortic root is normal in size. There is no pericardial effusion. <ELECTRONICALLY SIGNED> By: Marcio Jimenez MD 07/23/21 1011 1011 1011 Marcio Jimenez MD /INF
--- NOTE | 2021-07-23 13:36 | NUR ---
1200 - PATIENT YELLING FROM ROOM, CONFUSED. PATIENT REORIENTED TO TIME PLACE, SITUATION. PATIENT REQUESTED TO MAKE A PHONE CALL. PATIENT CALLED 911 REQUESTING HELP WITH 2 STAFF MEMEBERS IN ROOM. ONCE PATIENT WAS CALM PATIENT STATED SHE HAD SPILLED HER COFFEE AND COMPLAINED THAT THE COFFEE WAS COLD. ALSO FOUND THAT PATIENT HAD AN INCONT BLADDER EPISODE. PATIENT GIVEN COMPLETE BED BATH WITH MAX ASSIST. PATIENT WAS CONCERNED ABOUT FALLING OUT OF BED WHILE TURNING DURING BED BATH. PATIENT REQUESTED SIDE RAILS X 4. UPON COMPLETION OF BED BATH PATIENT WAS CALM AND COOPERATIVE ALSO RETURNED TO BASELINE OF A&OX4.
--- NOTE | 2021-07-23 15:56 | NUR ---
INITIAL ASSESSMENT: EKTA reviewed chart and spoke with nursing and attending physician. Pt was admitted from home due to possible stroke. Pt is on 2L of O2. MRI ordered. Therapy evals ordered. Bed bugs have been found on pt and in her room. EKTA placed call to pt's room. No answer. Pt was unable to participate with PT this afternoon. EKTA left voice message for pt's spouse, Alejandro, ([phone]). Will need info from pt/family regarding prior level of functioning to assist as needed with discharge planning.
--- NOTE | 2021-07-23 15:59 | NUR ---
PATIENT IS POOR HISTORIAN, ATTEMPTED CALLS TO SPOUSE AND SON. SPOUSE HAS YET TO RETURN CALL. SON, TESFAYE GONZALEZ IS NOT ACCEPTING CALLS AT THIS TIME. MRI FORM IS INCOMPLETE AT THIS TIME. WILL CONTINUE TO ATTEMPT TO REACH FAMILY.
--- NOTE | 2021-07-23 18:38 | NUR ---
MRI FORM COMPLETED WITH AND SON; COMPLETED FORM FAXED TO MRI AND COMPLETED FORM PUT IN CHART. PT A&OX4 WITH SOME EPISODES OF CONFUSTION, SON AND STATE THEY WERE ATTEMPTING TO HAVE A WORKUP FOR DEMENTIA BUT IT HAS NOT BEEN COMPLETED. NEEDS A STOOL SAMPLE COLLECTED, DID NOT HAVE BM ON THIS SHIFT.
[2021-07-23 19:22] VITALS: BP 102/38
[2021-07-23 20:14] VITALS: BP 123/72
--- NOTE | 2021-07-23 22:19 | NUR ---
PT SLEEPING IN BED, EASILY AROUSED FOR ASSESSMENT AND MEDICATIONS. 02 PER NC. OBESE, BILATERAL FEET EDEMA. BED ALARM ON. PT WAS OBSERVED IN ED WITH BED BUGS.
[2021-07-24 03:24] LABS: CALCIUM 7.9 mg/dL (8.5-10.1); CREATININE 0.8 mg/dL (0.6-1.0); POTASSIUM 4.1 mmol/L (3.5-5.1)
[2021-07-24 03:25] LABS: CHOLESTEROL 103 mg/dL (<200); HDL CHOLESTEROL 49 mg/dL (>40); LDL CHOLESTEROL 40 mg/dL (<100); TC:HDL 2.1 Ratio (Not establshd); TRIGLYCERIDE 73 mg/dL (<150); VLDL 15 mg/dL (<40)
[2021-07-24 03:26] LABS: SERUM ASSESSMENT Clear
[2021-07-24 03:31] LABS: HEMATOCRIT 25.9 % (37.0-47.0); HEMOGLOBIN 7.9 gm/dL (12.0-15.0); MCH 26.7 pg (26.0-34.0); MCHC 30.3 g/dL (28.0-37.0); MCV 88.3 fL (80.0-100.0); RBC 2.94 mil/uL (4.20-5.00); RDW 16.3 % (10.5-14.5); WBC 7.3 thou/uL (4.0-11.0)
[2021-07-24 04:33] VITALS: BP 133/72
[2021-07-24 08:58] VITALS: BP 102/67
--- NOTE | 2021-07-24 10:11 | HC ---
[facility] [place] [address] CONSULTATION Name: ROC ROMAN Room #: 349-I ADM IN ..#: [id number] Admission: 07/23/21 Attend Phys: Otilia Bowen MD Discharge: Date of : 58 Report #: [id number] THIS REPORT FOR: cc: Marcin Bowman MD, Neal A. MD Khosla, Parveen K. MD ~ DATE OF SERVICE: 07/23/2021 HISTORY OF PRESENT ILLNESS: This is a 61-year-old female patient who is a very poor historian. She also has a different affect, that makes it difficult to get the history. The history I get in this patient is that she started having some uncontrollable movement as well as some unusual sensation in the left upper extremity. She said the symptoms are mostly resolved. She was conscious when it happened. She said she did not have this kind of episode before. She gives a history of some stroke in the past, but history after that is not very clear. Records indicate that she has a history of AFib, but she has stopped taking the anticoagulation because she ran out of it. REVIEW OF SYSTEMS: A 14-point review of system was attempted. The patient is not a good historian to get a good history. She had above-described symptoms. She has a history of psoriasis, hysterectomy, hypertension and records indicate she also has a history of atrial fibrillation. The EKG in the Emergency Room confirmed that finding. She had trouble with dizziness in the past. She said she had shingles. She has morbid obesity. She has dyspneas in the past. She had hypokalemia in the past. I am not sure how controlled her hypertension is. She had some upper respiratory infections some time. This is all the 14-point review of system I can get. PAST MEDICAL HISTORY: Positive for stroke. I do not get much history to further evaluate that. FAMILY HISTORY: Unremarkable. SOCIAL HISTORY: She says she does not use any drugs or use any alcohol. PHYSICAL EXAMINATION: She is alert. She is apathetic. When I asked her what month it is, she is able to tell. Her speech looks unremarkable. Cranial nerve examination II-XII was attempted. It is not a good exam. I cannot tell if she has any visual field deficit because she counts fingers pretty improperly. She said she can move everything, but she did not cooperate a whole lot with the sensory examination. There is no meningeal sign. I could not look at the patient's fundus. She is morbidly obese. Her hearing and vision is adequate. Her blood pressure is 102/48, pulse is 88 and temperature is 97.9. LABORATORY DATA: Indicate a white count of 10.7. Sodium is 133. Albumin is low at 2.6. She is not in any respiratory difficulty. She has atrial [address] [address] CONSULTATION Name: ROC ROMAN Room #: 349-I ADM IN ..#: [id number] Admission: 07/23/21 Attend Phys: Otilia Bowen MD Discharge: Date of : 58 Report #: [id number] fibrillation. She had a CT angiogram, which was reviewed, it showed some disease, but nothing significant. IMPRESSION: 1. It is possible this patient had a stroke because she has a history of atrial fibrillation and she has stopped taking her anticoagulant. 2. We will exclude the possibility of seizure. 3. She has thyroid enlargement on her CT angiogram and we will defer that evaluation and management to hospitalist. RECOMMENDATIONS: 1. We will get an MRI done in this patient. 2. Get an EEG done. 3. Await this to see what further management is desired and if MRI shows the stroke, which can explain the patient's symptoms, then she can continue her Xarelto, which is already started. Thank you very much for this referral and if you have any questions, please feel free to contact me. We will follow the patient along with you after the testing is done. <ELECTRONICALLY SIGNED> By: Neal Sommers MD 07/24/21 1011 1301 [id number] Neal Sommers MD /nt
[2021-07-24 10:17] LABS: % SATURATION 8 % (20-39); IRON 31 ug/dL (50-170); TIBC 380 ug/dL (250-450)
[2021-07-24 10:45] LABS: FOLIC ACID 15.7 ng/mL (8.6-58.9)
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
--- NOTE | 2021-07-24 16:23 | NUR ---
I have reviewed the documentation by REX DELACRUZ from 07/24/21 to 07/24/21 and I concur with it. ROBBIN RIVERA, PT, DPT
[2021-07-24 17:00] VITALS: BP 116/65
--- NOTE | 2021-07-24 18:33 | NUR ---
RN ASSUMED PT'S CARE AT 0700AM, PT IS A&OX2 ( PERSON AND PLACE ), PT CAN FOLLOW COMMANDS, BUT PT IS CONFUSED AT TIME, PT IS ON O2 2L/MIN/NC, PT'S VS AND O2SAT ARE STABLE, PT DENIES PAIN AND SOB AT DAY SHIFT.
[2021-07-24 19:27] VITALS: BP 149/83
--- NOTE | 2021-07-24 20:05 | NUR ---
PT SLEEPING IN BED EASILY AROUSED FOR ASSESSMENT. PT VERY TALKATIVE, ASKING QUESTIONS. PT ORIENTED TO PERSON AND SITUATION, NOT TIME. OBESE, O2 PER NC. PURWICK INTACT. BED ALARM ON.
[2021-07-25 03:55] VITALS: BP 128/68
[2021-07-25 07:38] VITALS: BP 140/72
[2021-07-25 08:08] LABS: GLYCOHEMOGLOBIN (HGB A1C) 7.6 % (4.8-5.6)
--- NOTE | 2021-07-25 12:18 | NUR ---
SW reviewed chart and spoke with nursing and attending physician. Pt is on 2L of O2. MRIs ordered for today. SW faxed referral to [facility]. Notified [facility] liaison. [facility] is not in-network with pt's insurance policy. SNF referrals also sent to [facility] and [facility] for [facility]. SW is following to assist as needed with discharge planning.
--- NOTE | 2021-07-25 13:12 | NUR ---
ASSUMED CARE OF PT AT 0700. PT AOX1-2. FORGETFUL. VSS. PT NONAMBULATORY, DISPLAYS CONFUSION FROM TIME TO TIME. UNDERSTANDS LOCATION BUT DOES NOT UNDERSTAND WHY. ON 2L O2, SATURATING AT 98%. PT INCONTINENT OF URINE. STILL AWAINTING STOOL SAMPLE. MRI AND ULTRASOUND DONE TODAY. WILL CONTINUE TO MONITOR.
[2021-07-25 15:11] VITALS: BP 145/73
[2021-07-25 20:00] VITALS: BP 148/90
[2021-07-26 03:57] VITALS: BP 162/72
--- NOTE | 2021-07-26 04:54 | NUR ---
PROGRESS PT ALERT AND ORIENTED TO SELF, SITUATION AND PLACE. BUT HALLUCINATING AND AGITATED. TRYING TO GET UP UNASSISTED, GOT OUT OF BED CLIMBED OVER THE RAILS AND WALKED TO BATHROOM THEN WAS UNABLE TO GET UP FROM TOLIET USED JANELLE LIFT TO RETURN TO BED. VSS. KEEPS PULLING TELEMETRY OFF AND PULLED OUT 3 IV'S. ORDER TO DC TELE OBTAINED. IV RESTARTED IN MEG 22 G SL. FREQUENT ROUNDING BED ALARMS IN PLACE, REORIENT NEEDED.
[2021-07-26 07:00] VITALS: BP 146/57
--- NOTE | 2021-07-26 11:50 | NUR ---
EKTA reviewed chart and spoke with nursing and attending physician. Pt did have an acute CVA. EKTA updated [facility] liaison. Awaiting therapy notes from today to fax to [facility] for review. EKTA faxed MRI results and progress notes. Will need insurance auth for admission to in acute rehab. EKTA is following to assist as needed with discharge planning.
--- NOTE | 2021-07-26 14:14 | NUR ---
I have reviewed the documentation by ELÍAS BIRMINGHAM from 07/26/2021 to 07/26/21 and I concur with it. COREEN MENON PT, DPT
[2021-07-26 16:00] VITALS: BP 124/79
--- NOTE | 2021-07-26 16:05 | NUR ---
RN ASSUMED PT'S CARE AT 0700AM, PT IS A&OX2 ( PERSON AND PLACE), PT IS CONFUSED AND IMPULSIVE AT TIME, PT TAKES OFF HER PIV ONE TIME, PT IS INCONTINENT AT URINE AND BM , PT NEEDS HELP ADL AND MEALS, PT IS OFF O2 TODAY, PT'S VS AND O2SAT ARE STABLE BY THIS TIME.
[2021-07-26 19:26] VITALS: BP 172/55
[2021-07-26 20:15] VITALS: BP 151/81
--- NOTE | 2021-07-26 22:37 | NUR ---
PT ALERT AT SELF AND SITUATION. SHE IS FORGETFUL TO MONTH. REMINDED X3. PT HAS VISUAL PROBLEMS WITH RIGHT EYE AND CANNOT SEE NUBERS IN LOWER RIGHT QUADRANT. PT STATED THIS IS NOT NEW AND HAPPENED WITH PREVIOUS CVA IN 2017. PT'S LEFT SIDE IS STRONGER NOW. SHE CAN MOVE LEFT ARM AND LEG. LLE STILL HAS A DRIFT. NO C/O PAIN . SHE IS SLEEPING PRESENTLY. NO S/S DISTRESS. NO C/O PAIN.
[2021-07-27] VITALS (12 sets, daily range): BP systolic 119–198; BP diastolic 64–108
[2021-07-27 02:07] LABS: BE(vivo) 4.2 mmol/L (-2 to +3); HCO3 31.8 mmol/L (22.0-26.0); PCO2 64.9 mmHg (35.0-45.0); PO2 77.5 mmHg (80.0-100.0); pH 7.308 (7.360-7.450); sO2 93.9 % (92.0-98.0)
--- NOTE | 2021-07-27 04:09 | NUR ---
PT CALLED OUT AND STATED SHE WAS SOA. RAISED PT UP HIGHER IN BED. SHE BECAME CYANOTIC. HYPERTENSIVE SEE CHART. RR 36. SAT 64% ON RA. PLACED PT ON 15LNC SAT MAINTAINED IN 70S. 100% NRB APPLIED. RT NOTIFIED. SAT CAME UP INTO LOW 80S. BIPAP APPLIED. FIO2 100%. DIRECTOR SAFETY NOTIFIED. ABGS DRAWN. CTA ORDERED. 20 APPLIED L AC. MORPHINE 2MG IV GIVEN ORDERED. PT AFIB ON MONITOR. AFTER CTA. METOPROLOL 5 MG IV GIVEN. PT STATED SHE IS FEELING MUCH BETTER AND LESS SOA. SAT 100% ON BIPAP. RR 25. HR 104. SBP BETTER 130-140S. FIO2 DROPPED TO 80% PER RT. PT INC OF URINE SEVERAL TIMES PUREWICK INTACT. WAITING FOR RESULTS OF CTA.
--- NOTE | 2021-07-27 07:55 | NUR ---
REPORTED RESULTS OF CTA TO [facility]. NEGATIVE FOR PE BUT + FOR PNEUMONIA. STARTED LOADING DOSE OF ZOSYN . VANC ORDERED AND DOSED BY PHARMACY ORDERED. NOTIFIED DAY SHIFT NS OF SEVERAL NEW ORDERS ENTERED BY DR REICH. DR REICH CAME UP TO SEE PT WHILE WE WERE IN REPORT. CHANGE IN MENTAL STATUS NOTED. PT WAS WAKING UP TO PAINFUL STIMULI WHERE BEFORE SHE WAS TO VOICE. STAT ABGS ORDERED. DR REICH HERE AND DAY SHIFT TO F/U.
[2021-07-27 08:07] LABS: BE(vivo) 5.2 mmol/L (-2 to +3); HCO3 33.3 mmol/L (22.0-26.0); sO2 98.2 % (92.0-98.0)
[2021-07-27 08:09] LABS: PCO2 72.6 mmHg (35.0-45.0)
[2021-07-27 09:18] LABS: ABSOLUTE NEUTROPHILS 12.2 thou/uL (1.4-8.2); BASOPHILS 0.4 % (0.0-2.0); EOSINOPHILS 0.3 % (0.0-3.0); HEMATOCRIT 28.6 % (37.0-47.0); HEMOGLOBIN 8.5 gm/dL (12.0-15.0); LYMPHOCYTES 3.4 % (24.0-44.0); MCH 26.3 pg (26.0-34.0); MCHC 29.7 g/dL (28.0-37.0); MCV 88.6 fL (80.0-100.0); MONOCYTES 2.9 % (1.0-8.0); PLATELET COUNT 264 thou/uL (150-400); RBC 3.23 mil/uL (4.20-5.00); RDW 17.1 % (10.5-14.5); WBC 13.1 thou/uL (4.0-11.0)
[2021-07-27 09:31] LABS: URINE BILIRUBIN NEGATIVE (Negative); URINE BLOOD TRACE (Negative); URINE CLARITY CLEAR; URINE COLOR YELLOW; URINE GLUCOSE-RANDOM* NEGATIVE (Negative); URINE KETONES NEGATIVE (Negative); URINE LEUKOCYTES-REFLEX NEGATIVE (Negative); URINE NITRITE-REFLEX NEGATIVE (Negative); URINE PROTEIN (DIPSTICK) NEGATIVE (Negative); URINE SPECIFIC GRAVITY 1.015 (1.005-1.035)
[2021-07-27 09:40] LABS: ALBUMIN 2.9 g/dL (3.4-5.0); CALCIUM 8.7 mg/dL (8.5-10.1); CREATININE 0.9 mg/dL (0.6-1.0); POTASSIUM 3.8 mmol/L (3.5-5.1); TOTAL PROTEIN 6.5 g/dL (6.4-8.2)
[2021-07-27 09:56] LABS: BE(vivo) 4.9 mmol/L (-2 to +3); HCO3 31.6 mmol/L (22.0-26.0); PCO2 59.2 mmHg (35.0-45.0); PO2 93.6 mmHg (80.0-100.0); pH 7.345 (7.360-7.450); sO2 96.6 % (92.0-98.0)
[2021-07-27 10:25] LABS: ANISOCYTOSIS 2+; MICROCYTES 1+; PLATELET ESTIMATE NORMAL; POLYCHROMASIA SLIGHT
--- NOTE | 2021-07-27 12:17 | NUR ---
EKTA reviewed chart and spoke with nursing and attending physician. Pt placed on bipap overnight due to respiratory failure. Pt is on IV abx and IV steroids. CC/tele status ordered this morning. EKTA faxed rehab physician consult and OT note from yesterday to [facility] for review. [facility] to start working on insurance auth. EKTA provided update to [facility] liaison. No weekend discharge anticipated due to change in condition. EKTA is following to assist as needed with discharge planning.
--- NOTE | 2021-07-27 14:57 | NUR ---
I have reviewed the documentation by REX DELACRUZ from 07/27/21 to 07/27/21 and I concur with it. ROBBIN RIVERA, PT, DPT
--- NOTE | 2021-07-27 19:41 | NUR ---
RN ASSUMED PT'S CARE AT 0700-1900PM, PT IS ON BIPAP WITH O2 50% UNTILL 1500PM, PT'S ABG RESLUTS AND PT'S O2SAT ( 95-99%) HAVE IMPROVED, PT IS A&OX3 ( PERSON,PLACE AND TIME), PT CAN FOLLOW COMMANDS, THEN PT IS OFF BIPAP AND SHE STARTS HIGH FLOW O2 15L/MIN/NC ,AND SHE HAS EATING HER DINNER, PT'S O2SAT STAY AT 95-96% WITH O2 15L/MIN/NC, PT DENIES PAIN AND SOB BY THIS TIME. PT 'S SON STAYS WITH PT AT DINNER TIME.
--- NOTE | 2021-07-27 20:51 | NUR ---
PT ALERT AND ORIENTED TO SELF AND PLACE. PT FORGETFUL TO MONTH AND DATE. REORIENTING SEVERAL TIMES PER SHIFT. FOLLOWS COMMANDS. AWAKENS EASILY. SHE STATED THIS IS THE BEST DAY SHE HAS HAD HERE SO FAR AND IS FEELING MUCH BETTER. SHE IS ON 15LNC. SATS 96% RESPIRATIONS REGULAR AND UNLABORED PRESENTLY. VANCOMYCIN AND ZOSYN INFUSING. WILL CONTINUE TO MONITOR PT CLOSELY FOR CHANGES. VSS AFEBRILE AFIB ON MONITOR 94 RT CONTROLLED. NO C/O PAIN OR SOA. PT ON HERMAN MATTRESS. RANDALL INTACT DRAINING CLEAR YELLOW URINE. SCDS ON.
[2021-07-28] VITALS (8 sets, daily range): BP systolic 80–138; BP diastolic 33–87
--- NOTE | 2021-07-28 06:03 | NUR ---
PT PROGRESSING SLOWLY TOWARDS D/C GOALS. VSS AFEBRILE. SATS WNL TONIGHT ON BIPAP 50% FIO2. PT MILDLY CONFUSED. UO MODERATE. ENCOURAGED PO FLUIDS WHEN OFF BIPAP. PT IS SLEEPING PRESENTLY. AWAKENS EASILY TO VOICE. ZGARD TO BUTTOCKS. PT ON HERMAN MATRESS.
[2021-07-28 12:29] LABS: HEMATOCRIT 25.2 % (37.0-47.0); MCH 26.8 pg (26.0-34.0)
[2021-07-28 12:32] LABS: ABSOLUTE NEUTROPHILS 8.8 thou/uL (1.4-8.2); BASOPHILS 0.6 % (0.0-2.0); HEMOGLOBIN 7.6 gm/dL (12.0-15.0); LYMPHOCYTES 2.9 % (24.0-44.0); MCHC 30.2 g/dL (28.0-37.0); MCV 88.8 fL (80.0-100.0); MONOCYTES 3.1 % (1.0-8.0); PLATELET COUNT 248 thou/uL (150-400); POLYS 93.4 % (36.0-66.0); RBC 2.84 mil/uL (4.20-5.00); RDW 16.8 % (10.5-14.5); WBC 9.4 thou/uL (4.0-11.0)
[2021-07-28 12:37] LABS: CALCIUM 8.1 mg/dL (8.5-10.1); CREATININE 0.9 mg/dL (0.6-1.0); POTASSIUM 3.8 mmol/L (3.5-5.1)
--- NOTE | 2021-07-28 19:43 | NUR ---
RN ASSUMED PT 'S CARE AT 0700-1900PM, PT IS A&OX2 ( PERSON, PLACE ), PT IS CONFUSED AT TIME, PT IS OFF BIPAP AND PT IS ON O2 12-14 L/MIN/NC AT DAY SHIFT, PT'S O2SAT STAY AT 95-98%, PT'S SOB HAS IMPROVED, PT IS CONTINUING IV ABX , PT'S VS ARE STABLE AT DAY SHIFT, PT DENIES PAIN AND N/V AT DAY SHIFT.
[2021-07-29 04:34] VITALS: BP 143/78
[2021-07-29 05:28] LABS: MCHC 31.8 g/dL (28.0-37.0); MCV 88.1 fL (80.0-100.0); RBC 2.84 mil/uL (4.20-5.00); RDW 16.5 % (10.5-14.5); WBC 10.6 thou/uL (4.0-11.0)
[2021-07-29 05:36] LABS: CALCIUM 8.1 mg/dL (8.5-10.1); POTASSIUM 3.9 mmol/L (3.5-5.1)
[2021-07-29 07:07] VITALS: BP 159/95
[2021-07-29 11:07] VITALS: BP 128/75
[2021-07-29 15:04] VITALS: BP 141/75
--- NOTE | 2021-07-29 15:45 | NUR ---
RN ASSUMED PT'S CARE AT 0700AM, PT IS A&OX2 ( PERSON AND PLACE), PT CAN FOLLOW COMMANDS, PT IS CONFUSED AT TIME, PT IS CONTINUING IV ABX, PT'S O2 IS TITRATED TO 6L/MIN/NC FROM 10L /MIN/NC, PT IS O2SAT STAY AT 94-98% , PT'S VS ARE STABLE BY THIS TIME, PT'S SON STAYS AT PT'S BEDSIDE, PT DENIES PAIN AND SOB BY THIS TIME.
[2021-07-29 20:25] VITALS: BP 149/73
--- NOTE | 2021-07-29 22:05 | NUR ---
PT PROGRESSING TOWARDS D/C GOALS. VSS T 98.8. UNLABORED ON 5LNC. DENIED PAIN. BED DOWN .CALL LIGHT IN REACH. BED ALARM IS ON. NO S/S DISTRESS SO FAR TONIGHT.
[2021-07-30 03:38] VITALS: BP 156/86
[2021-07-30 04:44] LABS: HEMATOCRIT 27.4 % (37.0-47.0); HEMOGLOBIN 8.5 gm/dL (12.0-15.0); MCH 27.8 pg (26.0-34.0); MCV 89.5 fL (80.0-100.0); RBC 3.06 mil/uL (4.20-5.00); RDW 16.9 % (10.5-14.5); WBC 10.1 thou/uL (4.0-11.0)
--- NOTE | 2021-07-30 04:45 | NUR ---
PT RESTING QUIETLY. NO S/S DISTRESS.
[2021-07-30 05:14] LABS: CALCIUM 8.5 mg/dL (8.5-10.1); POTASSIUM 3.6 mmol/L (3.5-5.1)
[2021-07-30 07:12] VITALS: BP 142/66
[2021-07-30 12:06] VITALS: BP 144/70
--- NOTE | 2021-07-30 12:44 | NUR ---
WOUND CONSULT: THE PATIENT HAS A LARGE SKIN TAG LOOKING GROWTH ON HER BACK WHICH IS ANOYING TO THE PATIENT. SHE SAYS IT CAUSES NO PAIN. THIS IS NOT A WOUND BY DEFINITION. RECOMMENDATIONS: I HAVE NO RECOMMENDATION BUT I WILL DISCUSS WITH DR WHITE.
[2021-07-30] MEDS ORDERED: XARELTO20 MG PO (13:58)
[2021-07-30] MEDS ORDERED: COREG25 MG PO (13:58)
[2021-07-30] MEDS ORDERED: PREDNISONE 10 M10 M1 PO (13:59)
[2021-07-30] MEDS ORDERED: AMOX TR-K CLV1 EAC4 PO (13:59)
[2021-07-30] MEDS ORDERED: METFORMIN HCL500 M1 PO (13:59)
--- NOTE | 2021-07-30 14:44 | NUR ---
DISCHARGE NOTE: EKTA reviewed chart and spoke with nursing and attending physician. Pt is medically stable for discharge to [facility] today. SW faxed updated clinical info. Pt is on 3L of O2. SW received call from Dalila at [facility] who states they received insurance auth and can accept pt today. Transportation scheduled for [id number] per facility's arrangements. EKTA met with pt at bedside to provide update and notify of discharge timeframe. Pt verbalized understanding and is agreeable with discharge plan. Pt requested SW notify her son. SW left voice message for pt's son, Sid, to provide update and notify of discharge plan. Chart copy requested. Nursing provided with number to call report. SW notified attending physician. Discharge ppwk completed and faxed to [facility]. Confirmed info was received. No additional SW needs identified at this time, but is available to assist should needs arise.
[2021-07-30 15:44] VITALS: BP 143/67
--- NOTE | 2021-07-30 16:37 | NUR ---
I have reviewed the documentation by REX DELACRUZ from 07/30/21 to 07/30/21 and I concur with it. ROBBIN RIVERA, PT, DPT
--- NOTE | 2021-07-30 18:16 | NUR ---
RN ASSUMED PT'S CARE AT 0700AM, PT IS A&OX3 ( PERSON, PLEASE AND TIME), PT IS CONFUSED AT TIME, PT'S O2 HAS REDUCED O2 3-4L/MIN/NC, PT'S O2SAT STAY AT 94-98%, PT'S SOB HAS IMPROVED, BUT PT STILL HAS GENERAL WEAKNESS , RN RECEIVED ORDER TO DC PT TO [facility] , RN HAS GIVED REPORT TO [facility], TRANSPORTATION STAFF C [employer] PT BY W/C AT THIS TIME, PT'S SON STAYS WITH PT. PT'S VS ARE STABLE BY THIS TIME.
== END 2021-07-30 18:59 | disposition home or self-care (01) | DRG 64 ==
LOC: ER 00:22 → EROBS 03:58 → 3W 03:58
PROVIDERS: Hospitalist; Internal Medicine; Nurse Practitioner Family; Pediatrics; Student in an Organized Health Care Education/Training Program; ADMIT Internal Medicine; ATTEND Internal Medicine
PROC: 5A09357 Assistance with Respiratory Ventilation, Less than 24 Consecutive Hours, Continuous Positive Airway Pressure (ICD-10-PCS; 2021-07-26)
PROC: 5A09357 Assistance with Respiratory Ventilation, Less than 24 Consecutive Hours, Continuous Positive Airway Pressure (ICD-10-PCS; 2021-07-27)
PROC: 5A09357 Assistance with Respiratory Ventilation, Less than 24 Consecutive Hours, Continuous Positive Airway Pressure (ICD-10-PCS; 2021-07-27)
PROC: 5A0935A Assistance with Respiratory Ventilation, Less than 24 Consecutive Hours, High Flow/Velocity Cannula (ICD-10-PCS; 2021-07-27)
PROC: 5A09357 Assistance with Respiratory Ventilation, Less than 24 Consecutive Hours, Continuous Positive Airway Pressure (ICD-10-PCS; principal; 2021-07-28)
PROC: 5A09357 Assistance with Respiratory Ventilation, Less than 24 Consecutive Hours, Continuous Positive Airway Pressure (ICD-10-PCS; 2021-07-28)
PROC: 5A0935A Assistance with Respiratory Ventilation, Less than 24 Consecutive Hours, High Flow/Velocity Cannula (ICD-10-PCS; 2021-07-28)
PROC: 5A0935A Assistance with Respiratory Ventilation, Less than 24 Consecutive Hours, High Flow/Velocity Cannula (ICD-10-PCS; 2021-07-29)
DX: I63.9 Cerebral infarction, unspecified (principal); J69.0 Pneumonitis due to inhalation of food and vomit; E43 Unspecified severe protein-calorie malnutrition; J96.21 Acute and chronic respiratory failure with hypoxia; Z68.44 Body mass index [BMI] 60.0-69.9, adult; I48.91 Unspecified atrial fibrillation; Z79.01 Long term (current) use of anticoagulants; L40.9 Psoriasis, unspecified; Z20.822 Contact with and (suspected) exposure to COVID-19; D64.9 Anemia, unspecified
CPT/HCPCS: 10080; 10879